=== PATIENT | male | born 1995 | race Caucasian/White ===

== ENCOUNTER 2020-03-29 15:41 | Emergency (ER) | payer BC, SELFPAY ==
--- NOTE | ~2020-03-29 | XR_ITS ---
EXAMINATION: XR foot LT min 3V DATE: 03/29/2020 16:05 INDICATION: Left foot pain, initial encounter TECHNIQUE: Dorsoplantar, lateral, and 2 oblique views of the left foot were obtained. COMPARISON: None. FINDINGS: There is no fracture, dislocation, or subluxation. The bones and joint spaces are normal. T here is plantar soft tissue swelling of the foot overlying the distal metatarsals. No radiopaque fore ign body is identified. IMPRESSION: 1. Soft tissue swelling without acute osseous abnormality or radiopaque foreign body identified. Reviewed, dictated and finalized at location A. [facility]
--- NOTE | 2020-03-29 15:45 | ED.SKABFB ---
HPI - Skin/Abscess/Foreign Bdy General Chief complaint: Skin/Abscess/Foreign Body Stated complaint: pos fb in left foot Source: patient and RN notes reviewed Mode of arrival: ambulatory Limitations: no limitations History of Present Illness HPI narrative: 24 yo male presents to express care with a possible tooth pick in his leftfoot for about 2 days. He and friends have tried multiple times to remove the toothpick. pain with swelling and redness noted to the distal planter aspect of the left foot. Can palpate the end of the toothpick Unknown last tdap. Related Data Allergies Allergy/AdvReac Type Severity Reaction Status Date / Time No Known Allergies Allergy Verified 03/29/20 15:54 Review of Systems Review of Systems: Narrative: CONSTITUTIONAL: Denies fever, chills, or sweats. CARDIOVASCULAR: Denies chest pain, palpitations, or edema. RESPIRATORY: Denies cough or dyspnea. GASTROINTESTINAL: Denies abdominal pain, nausea, vomiting, or diarrhea. GENITOURINARY: Denies dysuria or hematuria. SKIN: Denies rash or itching. MUSCULOSKELETAL: Denies back pain, joint pain, or myalgia. Pain in the plantar aspect of foot left, swelling and redness, reports foreign body NEUROLOGIC: Denies headache, numbness, or weakness. PSYCHIATRIC: Denies anxiety or depression. All other systems reviewed are negative, except as documented in HPI. PMFSH Comments Patient denies any past medical or surgical history. At the time of my signature, I reviewed and agree with the nursing past medical, surgical, social, and family history. There is no relevant family history pertinent to the patient complaint. Exam Narrative: Exam Narrative: GENERAL: This is a well-nourished, well-developed patient, in no apparent distress. HEAD: normocephalic, atraumatic. EYES: PERRL. Sclera clear/white. Vision is grossly intact. NECK: Neck supple, non-tender. CARDIOVASCULAR: Regular rate and rhythm without murmurs, gallops, or rubs. RESPIRATORY: Clear to auscultation. Breath sounds equal bilaterally. No wheezes, rales, or rhonchi. GASTROINTESTINAL: Abdomen soft, non-tender, nondistended. SKIN: warm, dry with no suspicious lesions or rash, good texture and turgor. redness and swelling noted with a foreign body to the plantar aspect of foot, please see diagram NEURO: awake, alert, and oriented to person, place and time. There were no obvious focal neurologic abnormalities. EXTREMITIES: No clubbing, cyanosis, or edema. No joint tenderness, effusion, or edema noted. BACK: Nontender without deformity Extrem: Ankle/foot/toe images: 1. Redness with swelling noted. Foreign body noted in center. Course Vital Signs Vital signs: Vital Signs Temperature 97.8 F 03/29/20 15:53 Pulse Rate 110 H 03/29/20 15:53 Respiratory Rate 20 03/29/20 15:53 Blood Pressure 158/106 H 03/29/20 15:53 Pulse Oximetry 98 03/29/20 15:53 Temperature 97.8 F 03/29/20 15:53 Pulse Rate 91 03/29/20 16:49 Respiratory Rate 20 03/29/20 15:53 Blood Pressure 136/71 03/29/20 16:49 Pulse Oximetry 98 03/29/20 15:53 Reviewed, after procedure blood pressure improved. Procedures Foreign Body Removal Foreign Body #1: Foreign Body Removal Date: 03/29/20 Foreign Body Removal Time: 16:25 Time Out Performed: yes Site: left and foot Description of foreign body: other (toothpick) Sedation/Analgesia: other (0.5 mL 1% lidocaine) Technique: removal with forceps and other (18g needle) Confirmed by:: direct visualization Complications: none, pain and bleeding Post-procedure exam: awake, alert, normal BP, normal HR and normal O2 sat Neurovascular: normal distal pulse, normal capillary fill, distal light touch sensation intact, distal motor function normal, no signs of compartment syndrome and no change from pre-procedure Foreign Body Removal Narrative: Discussed procedure with patient which she verbalized understanding
[2020-03-29 15:53] VITALS: BP 158/106; PULSE 110; RESP 20; TEMP 36.6; O2SAT 98
[2020-03-29] MEDS: TETANUS,DIPHTHERIA,AC PERTUSSIS ADULT (0.5 ML) BOOSTRIX IM (16:04)
[2020-03-29 16:49] VITALS: BP 136/71; PULSE 91
== END 2020-03-29 16:50 | disposition home or self-care (01) ==
PROVIDERS: Emergency Provider Nurse Practitioner
DX: S91.342A Puncture wound with foreign body, left foot, initial encounter (principal); X58.XXXA Exposure to other specified factors, initial encounter; L08.9 Local infection of the skin and subcutaneous tissue, unspecified; Z23 Encounter for immunization
CPT/HCPCS: 28190; 73630; 90471; 90715; 99213; G0463